=== PATIENT | female | born 1960 | race Caucasian/White ===

== ENCOUNTER → 2016-06-09 | Outpatient (CLI) | payer OTHER ==
--- NOTE | 2016-06-09 20:23 | WWHP ---
CHIEF COMPLAINT: The patient is here for her routine gynecologic exam. HPI: This is a 55-year-old G3, P2-0-1-2 with an LMP of 01/2016 who is status post tubal ligation. She states it has been more than 3 years since her last pelvic exam. Over the past 2 years, her periods have become less frequent and are now about every 3 months. She has been having occasional hot flashes at night, but these are not very often. She denies any hot flashes during the day. Her periods were regular before 2 years ago. PAST MEDICAL HISTORY: Unremarkable. Dr. Benavides is her primary care physician. MEDICATIONS: None. ALLERGIES: No known drug allergies. PAST SURGICAL HISTORY: section x2 and she did have a tubal ligation with the second one. PAST OB HISTORY: section x2 and she did have gestational diabetes with her second . She also has had 1 spontaneous . PAST TIP SCOURER HISTORY: She has no history of STDs. SOCIAL HISTORY: She denies tobacco and drug use and has about 0 to 3 alcoholic drinks per month. 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 FAMILY HISTORY: Father has Parkinson disease. She denies family history of cancer of the breast, uterus, ovaries or colon. REVIEW OF SYSTEMS: She has lost about 25 pounds over the past year with diet and exercise. She denies respiratory, cardiac or GI problems. PHYSICAL EXAM: Blood pressure 102/66. Height 5 feet 7 inches. Weight 162 pounds. Temperature 97.6, pulse 73. This is a well-developed, well-nourished white female who is alert and oriented x3, in no acute distress. HEENT is within normal limits. NECK: Supple without mass or thyromegaly. CHEST AND LUNGS: Clear to auscultation. HEART: Regular rate and rhythm. Breasts are without mass or discharge. There is a mild bilateral breast tenderness, which is generalized. Axillary is negative for adenopathy. BACK: Negative for CVA tenderness. ABDOMEN: Soft, nontender, without palpable masses. PELVIC: Normal external genitalia. Cervix and vagina appear normal. The cervix appears nulliparous and is a slightly stenotic. The uterus is midposition, nongravid size and nontender. There are no palpable adnexal masses or tenderness. Rectovaginal is negative for mass or tenderness and is negative for occult blood. EXTREMITIES: Nontender. IMPRESSION: 1. A 55-year-old perimenopausal female with normal gynecologic exam. 2. Oligomenorrhea x2 years, consistent with the perimenopause. PLAN: 1. Pap smear was performed. 2. Self-breast examination was discussed. 3. Mammogram was recommended. This will be a baseline screening mammogram and a slip was given to patient for this. I have stressed the importance of having these done on a regular yearly basis. 4. Screening colonoscopy was recommended based on her age and Dr. Lorenz's card was given to patient for this. 5. She will return in 1 year. She was also instructed to call if she is having significant menstrual problems or significant menopausal symptoms.
== END | disposition home or self-care (01) ==
LOC: WWCWWP 08:36
PROVIDERS: ATTEND Obstetrics & Gynecology

== ENCOUNTER → 2016-06-29 | Outpatient (CLI) | payer OTHER ==
--- NOTE | 2016-06-30 14:40 | MM ---
Reason for exam: screening (asymptomatic). History: Patient is postmenopausal and had first child at age 38. Took hormonal contraceptives for 10 years. Physical Findings: Patient refused breast exam. MG 3D Screening Mammo W/Cad Bilateral CC and MLO view(s) were taken. The breast tissue is heterogeneously dense. This may lower the sensitivity of mammography. There is no discrete abnormality. No significant changes when compared with prior studies. ASSESSMENT: Negative, BI-RAD 1 RECOMMENDATION: Routine screening mammogram of both breasts in 1 year.
== END | disposition home or self-care (01) ==
LOC: RADMAMWWP 08:14
PROVIDERS: ATTEND Obstetrics & Gynecology
DX: Z12.31 Encounter for screening mammogram for malignant neoplasm of breast (principal)
CPT/HCPCS: 77063; G0202

== ENCOUNTER → 2019-04-04 | Outpatient (CLI) | payer OTHER ==
[2019-04-04 09:25] VITALS: BP 125/75; PULSE 72; RESP 18; TEMP 98.1
--- NOTE | 2019-04-04 10:14 | P.HPOB ---
History of Present Illness H&P Date: 04/04/19 Chief Complaint: The patient is here for her routine gynecologic exam. This is a 58-year-old 012 with an LNMP of January 2017. She had a brief vaginal bleeding episode 01/12/2019 which lasted 2 days with period like flow. This was after nearly 2 years of no vaginal bleeding. She denies any significant hot flashes but occasionally feels warm. Prior to her LNMP, her menstrual periods were becoming more irregular and spacing out. She is status post tubal ligation. She is otherwise without gynecologic complaints. Review of Systems The patient has gained 28 pounds over the last 2-3years. She denies respiratory, cardiac, or G.I. problems. Past Medical History Past Medical History: No Reported History History of Any Multi-Drug Resistant Organisms: None Reported Past Surgical History: Section, Tubal Ligation Additional Past Surgical History / Comment(s): section 2. 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 - Past Family History Father Additional Family Medical History / Comment(s): Parkinson's disease. Medications and Allergies Home Medications Medication Instructions Recorded Confirmed Type No Known Home Medications 04/04/19 04/04/19 History Allergies Allergy/AdvReac Type Severity Reaction Status Date / Time No Known Allergies Allergy Unverified 04/04/19 09:25 Exam Vital Signs Temp Pulse Resp BP Pulse Ox 04/04/19 09:21 98.1 F 72 18 125/75 94 L Intake and Output 04/03/19 04/04/19 04/04/19 22:59 06:59 14:59 Other: Weight 86.183 kg Height 5 feet 7 inches, weight 190 pounds, BMI 29.8. This is a well-developed well-nourished white female who is alert and oriented times 3 in no acute distress. HEENT: Within normal limits. NECK: Supple without mass or thyromegaly. CHEST AND LUNGS: Clear to auscultation. HEART: Regular rate and rhythm. BREASTS: Are without mass or discharge. AXILLARY EXAM: Negative for adenopathy. BACK: Negative for CVA tenderness. ABDOMEN: Soft, nontender, without palpable masses. PELVIC EXAM: Normal external genitalia. Cervix and vagina appear normal. There is no unusual discharge. There is no evidence of prolapse. The uterus is midposition, nongravid size and nontender. There are no palpable adnexal masses or tenderness. RECTAL EXAM: Rectovaginal exam is negative for mass or tenderness and is negative for occult blood. EXTREMITIES: Nontender. IMPRESSION: 1. 58-year-old female with one episode of postmenopausal bleeding 2-3 months ago after 2 years of amenorrhea. No bleeding since then. 2. Normal gynecologic exam. PLAN: 1. Pap smear was performed. 2. Self breast awareness was discussed with the patient. 3. Screening mammogram was recommended and the order slip was given to the patient for this. 4. I have recommended a pelvic ultrasound to evaluate the endometrial thickness. If there is thickening, we will consider endometrial sampling by endometrial biopsy or referral for hysteroscopy D&C. 5. Osteoporosis prevention was discussed. I have stressed the importance of adequate calcium, vitamin D and regular exercise. Recommended amounts of calcium and vitamin D were also discussed. 6. We have discussed weight control since she has gained a fair amount of weight since her last visit. I have stressed the importance of good nutrition with 3 meals a day, getting adequate fiber and adequate exercise. 7. I have recommended screening colonoscopy based on her age. She states she will arrange this through Dr. Benavides's office. 8. She was advised to return in one year for her annual well woman exam and for evaluation of the postmenopausal bleeding episode.
--- NOTE | 2019-04-11 14:21 | P.PN ---
Progress Note - Text Progress Note Date: 04/11/19 OUTPATIENT FOLLOW-UP NOTE TEST(S)/RESULTS: Pap smear from 04/04/2019 was negative. METHOD OF NOTIFICATION: A message with this result was left on the patient's voicemail. PATIENT COMMENTS: DIAGNOSIS: Negative Pap smear. DISCUSSION: The patient is scheduled for her mammogram and pelvic ultrasound on 05/17/2019. PLAN: Testing as above. She was advised to return in one year for her annual well woman exam and as needed.
== END ==
LOC: WWCWWP 09:13
PROVIDERS: ATTEND Obstetrics & Gynecology
DX: Z53.9 Procedure and treatment not carried out, unspecified reason (principal)

== ENCOUNTER → 2019-06-05 | Outpatient (CLI) | payer OTHER ==
--- NOTE | 2019-06-05 10:44 | US ---
EXAMINATION TYPE: US pelvis complete transvag DATE OF EXAM: 06/05/2019 COMPARISON: NONE CLINICAL HISTORY: 58-year-old female N95.0 POST menopausal bleeding. TECHNIQUE: Transvaginal (TV) and Transabdominal (TA) . Transabdominal sonographic images of the pel vis were acquired. Transvaginal sonographic images were medically necessary to better assess the fol lowing anatomy: endo and ovaries. Date of LMP: postmenopausal FINDINGS: EXAM MEASUREMENTS: Uterus: 7.9 x 3.2 x 3.9 cm Endometrial Stripe: 0.5 cm Right Ovary: 1.3 x 1.3 x 0.9 cm Left Ovary: 1.5 x 1.8 x 0.8 cm 1. Uterus: Retroverted wnl 2. Endometrium: A 1.5 x 0.6 cm hypoechoic area centrally within the uterus at the level of the lower uterine segment may be technical as the section housekeeper does not indicate any abnormality here. The endo metrial stripe itself fairly thin at 0.5 cm 3. Right Ovary: wnl 4. Left Ovary: wnl 5. Bilateral Adnexa: wnl 6. Posterior cul-de-sac: no free fluid IMPRESSION: 1. At 1.5 x 0.6 cm hypoechoic area centrally at the level of the lower uterine segment may be technic al as the section housekeeper does not indicate an abnormality here. Follow-up in 6-8 weeks to reassess. 2. Otherwise, endometrial stripe elsewhere measures fairly thin at 5 mm.
--- NOTE | 2019-06-05 17:07 | P.PN ---
Progress Note - Text Progress Note Date: 06/05/19 OUTPATIENT FOLLOW-UP NOTE TEST(S)/RESULTS: Pelvic ultrasound done on 06/05/2019 showed a thin endometrium measuring 5 mm. The ovaries were within normal limits. There is a 1.5 cm hypoechoic area at the level of the lower uterine segment. METHOD OF NOTIFICATION: She was notified by phone. PATIENT COMMENTS: DIAGNOSIS: No evidence of endometrial thickening after one episode of postmenopausal bleeding several months ago. Hypoechoic area in the lower uterine segment of uncertain significance. DISCUSSION: I have reviewed the images with the radiologist, Dr. Rivero. Differential diagnosis includes uterine fibroid, endometrial growth and artifact. PLAN: Follow-up in 6-8 weeks was recommended by the radiologist. The order slip for this was sent to the patient for this. She was also instructed to call if she has any additional postmenopausal vaginal bleeding.
--- NOTE | 2019-06-06 11:50 | MM ---
Reason for exam: screening (asymptomatic). Last mammogram was performed 2 years and 11 months ago. History: Patient is postmenopausal and had first child at age 38. Took hormonal contraceptives for 10 years. Physical Findings: A clinical breast exam by your physician is recommended on an annual basis and results should be correlated with mammographic findings. MG Screening Mammo w CAD Bilateral CC and MLO view(s) were taken. Prior study comparison: June 30, 2016, bilateral MG 3d screening mammo w/cad. There are scattered fibroglandular densities. No suspicious abnormality. No significant changes when compared with prior studies. ASSESSMENT: Negative, BI-RAD 1 RECOMMENDATION: Routine screening mammogram of both breasts in 1 year.
== END | disposition home or self-care (01) ==
LOC: RADUSWWP 08:12
PROVIDERS: ATTEND Obstetrics & Gynecology
DX: Z12.31 Encounter for screening mammogram for malignant neoplasm of breast (principal); N95.0 Postmenopausal bleeding
CPT/HCPCS: 76830; 76856; 77067

== ENCOUNTER → 2023-02-28 | Outpatient (CLI) | payer OTHER ==
[2023-02-28 16:08] LABS: Chol/HDL Ratio 2.09 Ratio; LDL Cholesterol,Calculated 86.3 mg/dL (0.0-131.0); VLDL Calculation 14.42 mg/dL (5.00-40.00)
[2023-02-28 16:19] LABS: HCT 38.3 % (37.2-46.3); HGB 12.8 d/dL (12.0-15.0); MCH 32.7 pg (27.0-32.0); MCHC 33.4 d/dL (32.0-37.0); MCV 97.7 FL (80.0-97.0); Mean Platelet Volume 9.7 FL (9.5-12.2); NRBC Per 100 WBC 0 X 10*3/uL (0.00-0.01); Platelet Count 287 X 10*3/uL (140-440); RBC 3.92 X 10*6/uL (4.10-5.20); RDW 12.6 % (11.5-14.5); WBC 6.79 X 10*3/uL (4.50-10.00)
[2023-02-28 16:34] LABS: Appearance,Urine Clear (Clear); Bilirubin,Urine Negative (Negative); Blood,Urine Negative (Negative); Color,Urine Yellow (Yellow); Ketones,Urine Negative (Negative); Nitrite,Urine Negative (Negative); PH, Urine 7.5; Specific Gravity,Urine 1.019 (1.001-1.030); Urobilinogen,Urine 0.2 E.U./DL
[2023-02-28 16:53] LABS: ALT 21 U/L (8-44); AST 24 U/L (13-35); Albumin 4.3 d/dL (3.8-4.9); Albumin/Globulin Ratio 1.87 Ratio (1.60-3.17); Alkaline Phosphatase 96 U/L (41-126); Blood Urea Nitrogen 16.8 mg/dL (9.0-27.0); Calcium 9.6 mg/dL (8.7-10.3); Chloride 104 mmol/L (96-109); Globulin 2.3 d/dL (1.6-3.3); Glucose 90 mg/dL (70-110); Potassium 4.6 mmol/L (3.5-5.5); Sodium 142 mmol/L (135-145); Total Bilirubin 0.3 mg/dL (0.3-1.2); Total Protein 6.6 d/dL (6.2-8.2)
== END | disposition home or self-care (01) ==
LOC: LABWHC1 11:09
PROVIDERS: ATTEND Family Medicine
DX: Z00.00 Encounter for general adult medical examination without abnormal findings (principal)
CPT/HCPCS: 36415; 80053; 80061; 81003; 82306; 83036; 85027